=== PATIENT | male | born 1995 | race Caucasian/White ===

== ENCOUNTER 2022-05-08 20:43 | Emergency (ER) | payer OTHER ==
[2022-05-08 21:19] LABS: ESTIMATED GFR 95 mL/min (>60)
== END 2022-05-08 22:55 | disposition home or self-care (01) ==
LOC: JD.ED 20:43
DX: S06.0X0A Concussion without loss of consciousness, initial encounter (principal); F17.210 Nicotine dependence, cigarettes, uncomplicated; V49.40XA Driver injured in collision with unspecified motor vehicles in traffic accident, initial encounter; Y92.410 Unspecified street and highway as the place of occurrence of the external cause
CPT/HCPCS: 36415; 70450; 70450-26; 80053; 83690; 85025; 99284